=== PATIENT | male | born 1950 | race Two or more races ===

== ENCOUNTER 2023-05-20 19:14 | Observation (INO) | payer OTHER ==
[2023-05-20] MEDS ORDERED: SODIUM CHLORIDE 0.9% 500 ML INFUS.BAG IV ONE (21:40)
[2023-05-20] MEDS ORDERED: ACETAMINOPHEN 1000 MG/100 ML BAG IVPB ONE (21:40)
[2023-05-21 02:20] LABS: BASO % 0.2 % (0-2.0); EOS % 0.1 % (0-4.5); HEMOGLOBIN 14.2 GM/dL (11.7-16.9); LYMPH % 8.9 % (8-40); MCH 28.3 pg (25.7-33.7); MEAN CELL VOLUME 85.7 fl (80-96); MEAN PLT VOLUME 9.1 fl (7.5-11.1); MONO % 10.6 % (3.8-10.2); NEUT % 80.2 % (42.8-82.8); PLATELET COUNT 166 10^3/uL (134-434); RBC 5.02 M/mm3 (4.00-5.60); RDW 14.5 % (11.9-15.9); WHITE BLOOD COUNT 6.3 K/mm3 (4.0-10.0)
[2023-05-21 02:30] LABS: ACTIVATED PTT 27.3 SECONDS (25.2-36.5)
[2023-05-21 02:33] LABS: VENOUS BASE EXCESS 1.1 mmol/L (-2-2); VENOUS O2 SATURATION 26.4 % (70-80); VENOUS PCO2 54.2 mmHg (38-52); VENOUS PH 7.333 (7.310-7.410)
[2023-05-21 02:40] LABS: INR 1.26 (0.83-1.09); PROTHROMBIN TIME (PATIENT) 14.6 SEC (9.7-13.0)
[2023-05-21] MEDS ORDERED: ASPIRIN 81 MG CHEWABLE TABLETS PO ONE (06:09)
[2023-05-21] MEDS ORDERED: ASPIRIN 81 MG CHEWABLE TABLETS ONE (06:57)
[2023-05-21 07:16] LABS: POTASSIUM 4.5 mmol/L (3.5-5.1)
[2023-05-21 07:18] LABS: CALCIUM 8.2 mg/dL (8.5-10.1)
[2023-05-21 07:19] LABS: ALBUMIN 3.6 g/dl (3.4-5.0)
[2023-05-21 07:22] LABS: CREATININE 1.1 mg/dL (0.55-1.3)
[2023-05-21 07:23] LABS: BILIRUBIN,TOTAL 0.3 mg/dL (0.2-1)
[2023-05-21 09:25] LABS: URINE APPEARANCE CLEAR; URINE BILIRUBIN NEGATIVE (NEGATIVE); URINE COLOR YELLOW; URINE GLUCOSE (UA) NEGATIVE (NEGATIVE); URINE KETONE NEGATIVE (NEGATIVE); URINE LEUK ESTERASE NEGATIVE (NEGATIVE); URINE NITRITE NEGATIVE (NEGATIVE); URINE PROTEIN NEGATIVE (NEGATIVE); URINE UROBILINOGEN 0.2 mg/dL (0.2-1.0)
[2023-05-21] MEDS ORDERED: ACETAMINOPHEN 1000 MG/100 ML BAG IVPB PRN (10:17)
[2023-05-21] MEDS ORDERED: LOSARTAN POTASSIUM 50 MG TABLET ONE (10:18)
[2023-05-21] MEDS ORDERED: metoPROLOL SUCCINATE 25 MG TAB.SR.24H (FP) PO ONE (10:18)
[2023-05-21] MEDS ORDERED: PHENYTOIN NA EXTENDED 100 MG CAPSULE (FP) ONE (10:18)
[2023-05-21] MEDS: PHENYTOIN NA EXTENDED 100 MG CAPSULE (FP) PO SCH ×2 (10:35→21:50)
[2023-05-21] MEDS: LOSARTAN POTASSIUM 50 MG TABLET PO SCH (10:35)
[2023-05-21] MEDS: metoPROLOL SUCCINATE 25 MG TAB.SR.24H (FP) PO SCH (10:35)
[2023-05-21] MEDS: INSULIN SLIDING SCALE (NOVOLOG) 1 VIAL SQ SCH ×3 (12:38→22:02)
[2023-05-21] MEDS ORDERED: SODIUM CHLORIDE 1,000 ML IV SCH (12:45)
[2023-05-21 18:18] VITALS: BMI 38.0
[2023-05-21] MEDS: ROSUVASTATIN CA 10 MG TABLET PO SCH (21:50)
[2023-05-21] MEDS: INSULIN (LEVEMIR) 100 UNITS/ML UNITS SQ SCH (22:01)
[2023-05-21] MEDS: RIVAROXABAN 15 MG TABLET PO SCH (23:25)
[2023-05-22] MEDS: INSULIN (LEVEMIR) 100 UNITS/ML UNITS SQ SCH ×2 (06:01→21:51)
[2023-05-22] MEDS: INSULIN SLIDING SCALE (NOVOLOG) 1 VIAL SQ SCH ×4 (06:01→21:51)
[2023-05-22] MEDS ORDERED: DEXAMETHASONE SOD PHOSPHATE 10 MG/1 ML VIAL IVPUSH SCH (10:00)
[2023-05-22 10:11] LABS: HEMATOCRIT 43.3 % (35.4-49); HEMOGLOBIN 13.8 GM/dL (11.7-16.9); MCH 27.7 pg (25.7-33.7); MEAN CELL VOLUME 86.7 fl (80-96); MEAN PLT VOLUME 9.6 fl (7.5-11.1); PLATELET COUNT 148 10^3/uL (134-434); RBC 4.99 M/mm3 (4.00-5.60); RDW 14.5 % (11.9-15.9); WHITE BLOOD COUNT 4.8 K/mm3 (4.0-10.0)
[2023-05-22 10:38] LABS: MACROCYTOSIS 0
[2023-05-22] MEDS: LOSARTAN POTASSIUM 50 MG TABLET PO SCH (10:42)
[2023-05-22] MEDS: metoPROLOL SUCCINATE 25 MG TAB.SR.24H (FP) PO SCH (10:42)
[2023-05-22 10:43] LABS: CALCIUM 8.1 mg/dL (8.5-10.1)
[2023-05-22] MEDS: PHENYTOIN NA EXTENDED 100 MG CAPSULE (FP) PO SCH ×2 (10:43→21:32)
[2023-05-22 10:44] LABS: ALBUMIN 3.1 g/dl (3.4-5.0); BLOOD UREA NITROGEN 15.7 mg/dL (7-18); MAGNESIUM 2.1 mg/dL (1.8-2.4)
[2023-05-22 10:47] LABS: PHOSPHOROUS 2.6 mg/dL (2.5-4.9)
[2023-05-22 10:49] LABS: BILIRUBIN,TOTAL 0.4 mg/dL (0.2-1); TOT PROT 6.5 g/dl (6.4-8.2)
[2023-05-22] MEDS: INSULIN (NOVOLOG) ASPART 100 UNITS/ML 10ML VIAL SQ SCH (17:23)
[2023-05-22] MEDS: RIVAROXABAN 15 MG TABLET PO SCH (17:27)
[2023-05-22] MEDS: ROSUVASTATIN CA 10 MG TABLET PO SCH (21:32)
[2023-05-23 02:45] VITALS: TEMP 98.7
[2023-05-23] MEDS: INSULIN (LEVEMIR) 100 UNITS/ML UNITS SQ SCH (06:09)
[2023-05-23] MEDS: INSULIN (NOVOLOG) ASPART 100 UNITS/ML 10ML VIAL SQ SCH ×2 (06:10→11:24)
[2023-05-23] MEDS: INSULIN SLIDING SCALE (NOVOLOG) 1 VIAL SQ SCH ×2 (06:10→11:26)
[2023-05-23] MEDS: PHENYTOIN NA EXTENDED 100 MG CAPSULE (FP) PO SCH (11:02)
[2023-05-23] MEDS: LOSARTAN POTASSIUM 50 MG TABLET PO SCH (11:52)
[2023-05-23] MEDS: metoPROLOL SUCCINATE 25 MG TAB.SR.24H (FP) PO SCH (11:52)
[2023-05-23 13:12] LABS: BASO % 0.5 % (0-2.0); EOS % 3.6 % (0-4.5); HEMATOCRIT 44.9 % (35.4-49); HEMOGLOBIN 14.5 GM/dL (11.7-16.9); LYMPH % 27.3 % (8-40); MCH 27.9 pg (25.7-33.7); MCHC 32.2 g/dl (32.0-35.9); MEAN CELL VOLUME 86.4 fl (80-96); MEAN PLT VOLUME 9.1 fl (7.5-11.1); MONO % 17.4 % (3.8-10.2); NEUT % 51.2 % (42.8-82.8); PLATELET COUNT 156 10^3/uL (134-434); RBC 5.19 M/mm3 (4.00-5.60); RDW 14.2 % (11.9-15.9); WHITE BLOOD COUNT 3.9 K/mm3 (4.0-10.0)
[2023-05-23 13:36] LABS: POTASSIUM 4.4 mmol/L (3.5-5.1)
[2023-05-23 13:39] LABS: CALCIUM 8.5 mg/dL (8.5-10.1)
[2023-05-23 13:40] LABS: ALBUMIN 3.1 g/dl (3.4-5.0); BLOOD UREA NITROGEN 21.1 mg/dL (7-18); MAGNESIUM 2.4 mg/dL (1.8-2.4)
[2023-05-23 13:43] LABS: CREATININE 0.9 mg/dL (0.55-1.3); PHOSPHOROUS 3.6 mg/dL (2.5-4.9)
[2023-05-23 13:44] LABS: BILIRUBIN,TOTAL 0.3 mg/dL (0.2-1); TOT PROT 6.5 g/dl (6.4-8.2)
[2023-05-23 15:05] VITALS: BP 117/72; PULSE 95; RESP 18
== END 2023-05-23 16:00 | disposition home or self-care (01) ==
LOC: JER 19:14 → JERBED 05-21 05:44 → J6S 05-21 17:42
PROVIDERS: ADMIT Internal Medicine; ATTEND Internal Medicine
PROC: 3E0337Z Introduction of Electrolytic and Water Balance Substance into Peripheral Vein, Percutaneous Approach (ICD-10-PCS; principal; 2023-05-21)
PROC: 3E013VG Introduction of Insulin into Subcutaneous Tissue, Percutaneous Approach (ICD-10-PCS; 2023-05-21)
PROC: 3E033NZ Introduction of Analgesics, Hypnotics, Sedatives into Peripheral Vein, Percutaneous Approach (ICD-10-PCS; 2023-05-21)
DX: U07.1 COVID-19 (principal); I10 Essential (primary) hypertension; G40.909 Epilepsy, unspecified, not intractable, without status epilepticus; I48.91 Unspecified atrial fibrillation; E11.9 Type 2 diabetes mellitus without complications; E78.5 Hyperlipidemia, unspecified; Z85.46 Personal history of malignant neoplasm of prostate; R77.8 Other specified abnormalities of plasma proteins; F17.210 Nicotine dependence, cigarettes, uncomplicated
CPT/HCPCS: 0241U-QW; 36415; 71045-TC-FY; 71250-TC; 72125-TC; 72128-TC; 72131-TC; 80053; 80185; 81003; 82550; 82553; 82803; 82962; 83036; 83605; 83735; 84100; 84153; 84443; 84484; 85025; 85610; 85651; 85730; 86140; 86850; 86900; 86901; 87040; 87086; 93005; 93010; 96361; 96372; 96374; 96376; 99285-25; G0378